=== PATIENT | female | born 1965 | race Caucasian/White ===

== ENCOUNTER 2016-07-11 12:00 | Outpatient (CLI) | payer BC | END 2016-07-11 12:01 | disposition home or self-care (01) | DX: R31.9 Hematuria, unspecified (principal) ==

== ENCOUNTER 2017-01-07 14:14 | Emergency (ER) | payer BC ==
--- NOTE | 2017-01-07 14:41 | ED Physician Documentation ---
PD HPI CHEST PAIN - Stated complaint Stated Complaint: CP - Chief complaint Chief Complaint: Cardiac - History obtained from History obtained from: Patient, Family - History of Present Illness Timing - onset: Enter time (1300), Today Timing - onset during: Rest Timing - duration: Minutes (25) Timing - details: Abrupt onset, Now resolved Quality: Pressure, Tightness Location: Substernal Radiation: Other (across the chest) Improved by: Antacids, Other (and a BM) Associated symptoms: Feeling faint / dizzy. No: Shortness of air, Diaphoresis, Nausea, Vomiting, General Weakness, Palpitations, Cough Similar symptoms before: Has not had sx before Recently seen: Not recently seen - Additional information Additional information: 51-year-old female with a history of hypertension was getting ready to go out with her today when she developed substernal chest pressure that radiated across her chest. She states the pain was severe and slowly mounted. She did take some Tums and had a bowel movement and shortly after that the pain resolved completely. She denies diaphoresis associated with this she did feel somewhat lightheaded and dizzy with this. She feels well now. She has a positive family history of coronary artery disease early. She has a history of hypertension. She is a non-smoker. She has had a treadmill test done 3 years ago she describes this as a negative test. She does have deconditioning since being laid off from her job and she feels that over the past month she has noted a decrease in her endurance. Review of Systems Constitutional: reports: Fatigue. denies: Fever, Chills, Myalgias, Sweats Eyes: denies: Decreased vision Ears: denies: Ear pain Nose: denies: Congestion Throat: denies: Sore throat Cardiac: reports: Chest pain / pressure. 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, Oophrectomy - Allergies Allergies/Adverse Reactions: Allergies Allergy/AdvReac Type Severity Reaction Status Date / Time metoclopramide HCl * Allergy Unknown Verified 01/07/17 14:29 [From Reglan] prochlorperazine Allergy Unknown Verified 01/07/17 14:29 [From Compazine] prochlorperazine edisylate * Allergy Unknown Verified 01/07/17 14:29 [From Compazine] prochlorperazine maleate * Allergy Unknown Verified 01/07/17 14:29 [From Compazine] - Social History Does the pt smoke?: No Smoking Status: Never smoker Does the pt drink ETOH?: No Does the pt have substance abuse?: No - Immunizations Immunizations are current?: Yes - POLST Patient has POLST: No PD ED PE NORMAL - Vitals Vital signs reviewed: Yes (Hypertensive) - General General: Alert and oriented X 3, No acute distress, Well developed/nourished - HEENT HEENT: Atraumatic, PERRL, EOMI - Neck Neck: Supple, no meningeal sign, No bony TTP - Cardiac Cardiac: RRR, No murmur - Respiratory Respiratory: No respiratory distress, Clear bilaterally - Abdomen Abdomen: Soft, Other (Right upper quadrant tenderness to palpation with worsening with a deep breath.) - Back Back: No CVA TTP, No spinal TTP - Derm Derm: Normal color, Warm and dry, No rash - Extremities Extremities: No deformity, No edema - Neuro Neuro: No motor deficit, No sensory deficit - Psych Psych: Normal mood, Normal affect Results - Vitals Vitals: Vital Signs - 24 hr 01/07/17 01/07/17 01/07/17 14:18 14:31 17:36 Temperature 37.0 C 36.5 C Heart Rate 88 79 Respiratory 20 18 Rate Blood Pressure 174/88 H 125/63 O2 Saturation 99 100 Oxygen O2 Source Room air - EKG (time done) 1429 Rate: Rate (enter#) (74) Rhythm: NSR Ischemia: Normal ST segments Compare to prior EKG: Old EKG unavailable Computer interpretation: Agree with computer - Labs Labs: Laboratory Tests 01/07/17 01/07/17 01/07/17 14:54 14:54 14:54 WBC 8.2 RBC 4.73 Hgb 13.9 Hct 41.5 MCV 87.8 MCH 29.3 MCHC 33.4 RDW 13.3 Plt Count 232 MPV 8.4 Neut # 6.0 Lymph # 1.6 [place] # 0.5 Eos # 0.1 Baso # 0.1 Absolute Nucleated RBC 0.00 Nucleated RBCs 0.0 Sodium 137 Potassium 3.6 Chloride 102 Carbon Dioxide 27 Anion Gap 8.0 BUN 13 Creatinine 0.6 Estimated GFR (MDRD) 106 Glucose 107 H Calcium 9.8 Total Bilirubin 0.2 AST 22 ALT 37 Alkaline Phosphatase 85 Troponin I < 0.04 Total Protein 7.7 Albumin 4.8 Globulin 2.9 Albumin/Globulin Ratio 1.7 Lipase 22 - Rads (name of study) 2 view chest Radiology: Prelim report reviewed (Impression: No acute disease.), EMP read indepedently, See rad report abd ultrasound Radiology: Prelim report reviewed (Impression: Fatty liver.), EMP read indepedently, See rad report PD MEDICAL DECISION MAKING - ED course Complexity details: reviewed old records, reviewed results, re-evaluated patient , considered differential, d/w patient, d/w family ED course: 51-year-old female with a history of hypertension and a family history of early coronary disease has developed an acute episode of chest pain. Her workup here today is completely unremarkable electric cardiogram without ST change or concerns of any kind blood work without concerns of any kind. I found the patient tender in the right upper quadrant on evaluation and have ordered ultrasound of the abdomen. This is without evidence of stone. Departure - Departure Disposition: 01 Home, Self Care Clinical Impression: Atypical chest pain Condition: Stable Instructions: ED Chest Pain Atypical Unkn Cause Follow-Up: Maria C Negro PA-C [Primary Care Provider] - Comments: Today we did not have evidence to suggest your heart is a cause for your chest pain. Because of your family history of coronary disease a follow-up exercise treadmill test with your primary care provider is indicated. Discharge Date/Time: 01/07/17 17:39
--- NOTE | 2017-01-07 15:00 | XRAY Preliminary Report ---
Exam: XR Chest 2 View PA/LAT IMPRESSION: No acute disease. [facility] SITE ID: [id number]
--- NOTE | 2017-01-07 15:02 | XRAY Report ---
EXAM: CHEST RADIOGRAPHY EXAM DATE: 01/07/2017 02:52 PM. CLINICAL HISTORY: Chest pain. COMPARISON: None. TECHNIQUE: 2 views. FINDINGS: Lungs/Pleura: No localized infiltrate, consolidation, effusion, or pneumothorax. Mediastinum: Heart and mediastinal contours are unremarkable. Upper lobe vessels not distended. Other: Postoperative changes in the cervical spine. IMPRESSION: No acute disease. [facility] Referring Provider Line: [phone] SITE ID: [id number]
[2017-01-07 15:05] LABS: BASOPHILS # (AUTO) 0.1 10^3/uL (0.0-0.1); BASOPHILS % (AUTO) 0.6 %; EOSINOPHILS # (AUTO) 0.1 10^3/uL (0.0-0.7); EOSINOPHILS % (AUTO) 0.7 %; HCT - HEMATOCRIT 41.5 % (37.0-47.0); HGB - HEMOGLOBIN 13.9 g/dL (12.0-16.0); LYMPHOCYTES # (AUTO) 1.6 10^3/uL (1.5-3.5); MEAN CORPUSCULAR HEMOGLOBIN 29.3 pg (27.0-31.0); MEAN CORPUSCULAR HGB CONC 33.4 g/dL (32.0-36.0); MEAN CORPUSCULAR VOLUME 87.8 fL (81.0-99.0); MEAN PLATELET VOLUME 8.4 fL (7.9-10.8); MONOCYTES # (AUTO) 0.5 10^3/uL (0.0-1.0); MONOCYTES % (AUTO) 6.4 %; NEUTROPHILS % (AUTO) 73.3 %; RED BLOOD COUNT 4.73 10^6/uL (4.20-5.40); RED CELL DISTRIBUTION WIDTH 13.3 % (12.0-15.0); UNCORRECTED WHITE BLOOD COUNT 8.2 x10^3/uL; WHITE BLOOD COUNT 8.2 x10^3/uL (4.8-10.8)
[2017-01-07 15:21] LABS: ALBUMIN/GLOBULIN RATIO 1.7 (1.0-2.2); BILIRUBIN,TOTAL 0.2 mg/dL (0.2-1.0); CALCIUM 9.8 mg/dL (8.5-10.3); CREATININE 0.6 mg/dL (0.4-1.0); POTASSIUM 3.6 mmol/L (3.5-5.0); TOTAL PROTEIN 7.7 g/dL (6.7-8.2)
--- NOTE | 2017-01-07 17:05 | Ultrasound Preliminary Report ---
Exam: US Abdomen Limited IMPRESSION: Fatty liver. [facility] SITE ID: [id number]
--- NOTE | 2017-01-07 17:07 | Ultrasound Report ---
EXAM: ABDOMEN ULTRASOUND LIMITED, RUQ EXAM DATE: 01/07/2017 04:55 PM. CLINICAL HISTORY: RUQ pain chest pain . COMPARISON: None. TECHNIQUE: Real-time scanning was performed with static images obtained. FINDINGS: Liver: Diffusely echogenic. No definite mass. Normal overall size, 16.7 cm. Main portal vein flow: He patopetal. Gallbladder: Normal. No stones, wall thickening, or sonographic Ferrari's sign. Biliary System: CBD measures 4.9 mm. No intrahepatic or extrahepatic ductal dilatation. Other: Unremarkable right kidney. IMPRESSION: Fatty liver. [facility] Referring Provider Line: [phone] SITE ID: [id number]
[2017-01-07 17:37] VITALS: BP 125/63
== END 2017-01-07 17:39 | disposition home or self-care (01) ==
LOC: ED 14:14
DX: R07.89 Other chest pain (principal); I10 Essential (primary) hypertension; E78.00 Pure hypercholesterolemia, unspecified; Z82.49 Family history of ischemic heart disease and other diseases of the circulatory system
CPT/HCPCS: 36415; 71020; 76705; 80053; 83690; 84484; 85025; 93005; 99283; 99284